=== PATIENT | female | born 1975 | race Caucasian/White ===

== ENCOUNTER → 2016-10-19 | Outpatient (CLI) | payer OTHER ==
[2014-12-16 12:01] VITALS: BP 117/78
[~2016-10-19] MED LIST: BUPR75TA5 PO; CITA10TA8 PO; CITA20TA5 PO; HYDR-971 PO; IBUP200C9 PO; OXYC-244 PO; OXYC-323 PO; PREN1TAB58 PO; [UNRECOGNIZED DRUG - CODE] PO
--- NOTE | 2016-10-19 13:28 | KCIC ---
PROCEDURE Pelvic ultrasound HISTORY Right lower quadrant pelvic pain. COMPARISON None FINDINGS Transabdominal scan Uterus measures 7.0 cm longitudinal by 3.2 cm AP by 4.1 cm wide. Endometrial stripe measures about 3 millimeters. Ovaries are not well seen. Further evaluation will be obtained endovaginally. Endovaginal scan Endometrial stripe measures 4 millimeters thickness. Left ovary measures 2.3 centimeters long axis, and contains 2 follicular cysts measuring up to 11 millimeters diameter. Positive left ovary blood supply. Right ovary measures 2.2 centimeters long axis with positive blood flow. There are 2 follicular cysts at the right ovary, largest measuring 15 millimeters. No significant free fluid. IMPRESSION Unremarkable pelvic ultrasound. Bilateral ovarian follicular cysts. Electronically signed by: Gustavo Negrete MD (Oct 19, 2016 13:27:39)
--- NOTE | 2016-10-19 17:06 | KCIC ---
Bilateral digital screening mammograms with CAD: HISTORY Routine screening COMPARISON Comparison is made to previous examination dated 10/18/2015. FINDINGS Breast density category C. The skin and nipples show no abnormalities. No abnormal lymph nodes are seen in the axilla. The breast parenchyma shows heterogeneous density. There are no dominant masses, suspicious calcifications or architectural distortions. IMPRESSION No evidence of malignancy. Recommend routine annual mammographic screening. This study was interpreted with the benefit of Computerized Aided Detection (CAD). Mammography is not 100% sensitive in detecting breast cancer. Therefore, a self breast exam and a clinical breast exam are very important. A negative mammogram does not negate a clinically suspicious finding and should not result in a delay in biopsying a clinically suspicious abnormality. BI-RADS category 1. Negative. This patient's information has been entered into a reminder system for the patient to be notified with the results of this examination and a target date for her next mammograms. Electronically signed by: Dorene Velasquez MD (Oct 19, 2016 17:05:23)
== END | disposition home or self-care (01) ==
LOC: KCIC MAMMO 12:09
PROVIDERS: ATTEND Physician Assistant
DX: Z12.31 Encounter for screening mammogram for malignant neoplasm of breast (principal); N83.02 Follicular cyst of left ovary; N83.01 Follicular cyst of right ovary; R10.9 Unspecified abdominal pain; R10.2 Pelvic and perineal pain
CPT/HCPCS: 76830; 76856; G0202; 77067

== ENCOUNTER → 2017-04-03 | Outpatient (CLI) | payer OTHER ==
[2014-12-16 12:01] VITALS: BP 117/78
[~2017-04-03] MED LIST changes: -OXYC-244 PO; +OXYC-327 PO
--- NOTE | 2017-04-03 16:14 | KCIC ---
PELVIS W/TV History: Endometriosis, pelvic pain Comparison: October 19, 2016 Findings: Multiple transabdominal sonographic images of the pelvis are submitted. Uterus measured 6.8 x 2.8 x 2.5 cm. Ovaries are not well visualized. Transvaginal ultrasound: Multiple transvaginal sonographic images of the pelvis are submitted. Right ovary measured 2.2 x 1.5 x 2.9 cm, normal low resistance vascularity. There are follicles of the right ovary, dominant follicle or small cyst of the right ovary up to 1.5 cm. Endometrium measures 0.3 cm. There are some calcifications in the region of cervix. Left ovary measured 2.5 x 1.1 x 2 cm, normal low resistance vascularity. There are follicles of left ovary, dominant follicle 1.1 cm. No significant free fluid is demonstrated. Impression: 1. There are some nonspecific calcifications associated with the cervix. There are dominant follicles of the bilateral ovaries as stated, no free fluid. Electronically signed by: Be Aldana MD (04/03/2017 4:10 PM) [id number]
== END | disposition home or self-care (01) ==
LOC: KCIC US 15:29
PROVIDERS: ATTEND Obstetrics & Gynecology
DX: N80.9 Endometriosis, unspecified (principal)
CPT/HCPCS: 76830; 76856

== ENCOUNTER → 2017-06-21 | Outpatient (CLI) | payer OTHER ==
[2017-05-09 13:00] VITALS: BP 110/81
[~2017-06-21] MED LIST changes: +HYDR-2758 PO; +HYDR-2762 PO; +HYDR12.58 PO; +MEDR150D3 IM; +SINCALIDE 1.6 MCG in IV NORMAL SALINE 50ML 30 ML IV ONE; +TRAM50TA PO
--- NOTE | 2017-06-21 10:44 | RAD ---
Complete abdominal ultrasound 06/21/2017 Indication: Abdominal pain Comparison study: None. Discussion: Ultrasound evaluation of the abdomen was performed. Static images are submitted to PACS. Gallbladder is normal appearance evidence of wall thickening, stones, or sludge. Limited visualization of the aorta and IVC is unremarkable. Liver is normal in echotexture. Liver is normal in size measuring 14.5 cm longitudinally. No focal hepatic lesions are seen. Portal venous flows in the normal direction. Common bile duct is nondilated at 2 mm. Right kidney is normal appearance measuring 10.3 cm in length. Spleen is partially visualized and appear to be grossly normal in size. Left kidney is unremarkable in appearance measuring 9.8 cm in length. Impression: Unremarkable sonographic appearance of the abdomen.
--- NOTE | 2017-06-21 13:22 | RAD ---
Radionuclide hepatobiliary scan with gallbladder ejection fraction, 06/21/2017: History: Abdominal pain Following IV injection of 5.5 mCi of technetium 99m Choletec there was prompt uptake of the radionuclide from the blood stream by the liver. Activity is present in the bile ducts at 15 minutes and in the gallbladder at 20 minutes. Small bowel activity developed at 40 minutes. Additional imaging of the gallbladder was then performed following IV injection of 1.2 mcg of cholecystokinin. There is good gallbladder emptying with the gallbladder ejection fraction calculated at 82%. IMPRESSION: 1. Normal radionuclide hepatobiliary scan. 2. The gallbladder ejection fraction is 82%.
== END | disposition home or self-care (01) ==
LOC: US 09:51
PROVIDERS: ATTEND Internal Medicine Gastroenterology
DX: R10.9 Unspecified abdominal pain (principal)
CPT/HCPCS: 76700; 78226; 96374; 96375; A9537; J2805

== ENCOUNTER → 2017-12-04 | Outpatient (CLI) | payer OTHER | END | disposition home or self-care (01) | LOC: US 12:15 | DX: Z12.31 Encounter for screening mammogram for malignant neoplasm of breast (principal); N80.9 Endometriosis, unspecified; N93.9 Abnormal uterine and vaginal bleeding, unspecified; R93.8 Abnormal findings on diagnostic imaging of other specified body structures | CPT/HCPCS: 76830; 76856; 77067 ==

== ENCOUNTER → 2018-01-27 | Outpatient (CLI) | payer OTHER | END | disposition home or self-care (01) | LOC: US 15:16 | DX: N83.201 Unspecified ovarian cyst, right side (principal); N80.9 Endometriosis, unspecified; I10 Essential (primary) hypertension; F41.9 Anxiety disorder, unspecified; Z86.69 Personal history of other diseases of the nervous system and sense organs; Z87.440 Personal history of urinary (tract) infections | CPT/HCPCS: 76830; 76856 ==

== ENCOUNTER → 2019-03-23 | Outpatient (CLI) | payer BC ==
[2017-05-09 13:00] VITALS: BP 110/81
[~2019-03-23] MED LIST changes: -CITA20TA5 PO; +CITA20TA6 PO; -HYDR-2758 PO; +HYDR-2761 PO; -HYDR-2762 PO; +HYDR-2765 PO; +HYDR-3164 PO; -HYDR-971 PO; -OXYC-323 PO; -OXYC-327 PO; +OXYC1TAB15 PO; +OXYC1TAB19 PO; -SINCALIDE 1.6 MCG in IV NORMAL SALINE 50ML 30 ML IV ONE
--- NOTE | 2019-03-23 16:23 | KCIC ---
Bilateral diagnostic digital mammograms with 3-D tomosynthesis: Reason for examination: Clear bilateral nipple discharge 3 weeks ago lasting one day. Comparison is made to previous studies date 12/04/2017 and 10/19/2016. Bilateral mammograms in CC and oblique projections were obtained with 2-D imaging and 3-D tomosynthesis imaging on a Siemens Inspiration unit and reviewed on the workstation. Interpretation was made with the benefit of CAD. The skin and nipples show no abnormalities. No abnormal axillary lymph nodes are seen. The breast parenchyma is extremely dense. (Breast density: Category D.) There is some nodularity medially in the right breast at approximately the 3:00 position. There are no other dominant masses, suspicious calcifications or architectural distortion evident. Impression: Dense breast parenchyma bilaterally. Nodularity to the parenchyma at the 3:00 position of the right breast anteriorly. Bilateral breast ultrasound to follow. Your patient's mammogram demonstrates that she has dense breast tissue (breast density category C or D), which could hide abnormalities, and if she has other risk factors for breast cancer that have been identified, she might benefit from supplemental screening tests that may be suggested by you as her ordering physician. Dense breast tissue, in and of itself, is a relatively common condition. Therefore, this information is not provided to cause undue concern, but rather to raise your awareness and to promote discussion with your patient regarding the presence of other risk factors, in addition to dense breast tissue. Your patient's mammography results will be sent to her. BI-RAD Category 0: Incomplete. Needs additional imaging evaluation. Bilateral breast ultrasound: Bilateral whole breast ultrasound including evaluation of all 4 quadrants and the retroareolar and axillary regions of both breasts was performed. There is some dense fibroglandular tissue throughout the breasts bilaterally. There is ductal ectasia seen bilaterally. No vascular flow is seen within the dilated ductal structures. No discrete cystic or solid nodules are seen. No abnormal appearing lymph nodes are seen in either axilla. IMPRESSION: Ductal ectasia in the retroareolar areas bilaterally without abnormal vascular flow within the ductal structures to suggest an intraductal lesion. Recommend clinical follow-up and if discharge persists, galactography should be considered. Ultrasound follow-up in 6 months is recommended. BI-RADS Category 3: Probably Benign. "Our facility is accredited by the [employer] Mammography Program." This patient's information has been entered into a reminder system for the patient to be notified with the results of her examination and a target date for the next mammogram. Electronically signed by: Alesia Velasuqez MD (03/23/2019 4:20 PM) [facility]
--- NOTE | 2019-03-24 10:40 | KCIC ---
PELVIS W/TV History: History of hysterectomy and endometriosis Comparison: January 27, 2018 Findings: Multiple transabdominal sonographic images of the pelvis are submitted. There has been hysterectomy. No free fluid is demonstrated. Left ovary measured 3.2 x 2.3 x 2.9 cm. There is focus of heterogeneous echogenicity of the left ovary. Reportedly there has been right oophorectomy. Transvaginal ultrasound: Multiple transvaginal sonographic images of pelvis are submitted. There has been hysterectomy, no mass demonstrated in the region of vaginal cuff. No free fluid is demonstrated. There is new focus of different echogenicity with internal echoes of the left ovary on the order of 1.8 x 1.2 x 1.9 cm not associated with significant internal vascularity on color Doppler imaging. There is another new focus of more complex heterogeneity of the left ovary about 1.4 x 0.9 x 1.2 cm in size, some internal vascularity on color Doppler imaging. There is normal color flow of the left ovary. There are some other follicles of the left ovary. Impression: 1. Not seen on previous January 2018 exam, there is avascular focus of abnormal echogenicity left ovary likely a complex or hemorrhagic cyst. There is another focus of abnormal echogenicity left ovary with some internal vascularity demonstrated on color Doppler imaging possibly a small complex mass for which short-term follow-up in 2 months or MRI evaluation recommended. Electronically signed by: Be Aldana MD (03/24/2019 10:37 AM) [id number]
== END | disposition home or self-care (01) ==
LOC: KCIC MAMMO 13:00
PROVIDERS: ATTEND Obstetrics & Gynecology
DX: N60.42 Mammary duct ectasia of left breast (principal); N60.41 Mammary duct ectasia of right breast; Z90.710 Acquired absence of both cervix and uterus; Z90.721 Acquired absence of ovaries, unilateral
CPT/HCPCS: 76641; 76830; 76856; 77066; G0279; 77062